=== PATIENT | female | born 1960 | race African-American/Black ===

== ENCOUNTER 2016-12-21 11:54 | Inpatient (IN) | payer OTHER ==
[~2016-12-21] VITALS: Ht 162.6 cm; Wt 89.0 kg
[~2016-12-21 11:54] MED LIST: AMLO-511 PO; ATOR80TA PO; FURO40 PO; NITR0.4I3 SL; POTA8CAP10 PO; VALS160T2 PO; VICOT PO; WARF5 PO
[2016-12-21] MEDS ORDERED: NALO25TA PO (12:25)
[2016-12-21] MEDS ORDERED: GABA-531 PO (12:25)
[2016-12-21] MEDS ORDERED: METO50 PO (12:25)
[2016-12-21] MEDS ORDERED: RANI150T7 PO (12:25)
[2016-12-21] MEDS ORDERED: DICY20 PO (12:25)
[2016-12-21] MEDS ORDERED: FEBU40T PO (12:25)
[2016-12-21] MEDS ORDERED: ONDANSETRON HCL 4 MG/2 ML VIAL IVP ONE (12:30)
[2016-12-21] MEDS ORDERED: MORPHINE SULFATE 2 MG/ML SYRINGE IVP ONE ×2 (12:30→15:45)
[2016-12-21 12:42] LABS: BASOPHILS % (AUTO) 0.6 % (0.0-2.0); EOSINOPHILS % (AUTO) 2.9 % (1.0-6.0); HEMATOCRIT 40.5 % (36-46); HEMOGLOBIN 12.8 g/dL (12.0-16.0); LYMPHOCYTES # (AUTO) 2.2 K/uL (1.0-4.8); LYMPHOCYTES % (AUTO) 27.6 % (22.0-44.0); MEAN CORPUSCULAR HEMOGLOBIN 25.2 pg (26.0-34.0); MEAN CORPUSCULAR HGB CONC 31.6 G/dL (31.0-37.0); MEAN CORPUSCULAR VOLUME 80 fL (80-100); MONOCYTES # (AUTO) 0.4 K/uL (0.1-1.0); MONOCYTES % (AUTO) 4.5 % (2.0-9.0); NEUTROPHILS % (AUTO) 64.4 % (40.0-70.0); PLATELET COUNT (AUTO) 356 K/uL (150-450); RED BLOOD CELL COUNT(AUTO) 5.09 MIL/uL (4.00-5.20); RED CELL DISTRIBUTION WIDTH 15.6 % (11.5-14.5); WHITE BLOOD COUNT (AUTO) 7.8 K/uL (4.5-11.0)
[2016-12-21 12:54] LABS: PROTHROMBIN TIME 20.9 SEC (9.4-11.6)
[2016-12-21] MEDS ORDERED: HYDR-305 PO (12:56)
[2016-12-21] MEDS ORDERED: NITR.4 SL (12:56)
[2016-12-21] MEDS ORDERED: ATOR40TA28 PO (12:56)
[2016-12-21] MEDS ORDERED: AMLO-512 PO (12:56)
[2016-12-21] MEDS ORDERED: VALS80TA2 PO (12:56)
[2016-12-21 12:58] LABS: B-TYPE NATRIURETIC PEPTIDE 29 pg/mL (0-100)
[2016-12-21 13:02] LABS: ANION GAP 11 mmol/L (8-16); CALCIUM, TOTAL 9.2 mg/dL (8.8-10.5); CARBON DIOXIDE 23 mmol/L (22-29); CHLORIDE 110 mmol/L (98-107); CREATININE 0.81 mg/dL (0.60-1.30); GLOMERULAR FILTR. RATE CALC > 60 mL/min (>60); POTASSIUM 3.8 mmol/L (3.5-5.1); SODIUM SERUM 144 mmol/L (136-145); UREA NITROGEN, BLOOD 16 mg/dL (7-18)
[2016-12-21 13:25] LABS: ALANINE AMINOTRANSFERASE 39 U/L (12-78); ASPARTATE AMINOTRANSFERASE 23 U/L (15-37); BILIRUBIN,TOTAL 0.3 mg/dL (0.1-1.0); CREATINE KINASE MB 1.4 ng/mL (0-5); CREATINE KINASE, TOTAL 111 U/L (26-192); TOTAL PROTEIN, SERUM 7.6 g/dL (6.4-8.2)
[2016-12-21 14:38] LABS: APPEARANCE,URINE CLOUDY (CLEAR); GLUCOSE, URINE (UA) NEGATIVE (NEGATIVE); KETONES,URINE NEGATIVE (NEGATIVE); LEUKOCYTE ESTERASE ,URINE NEGATIVE (NEGATIVE); OCCULT BLOOD,URINE NEGATIVE (NEGATIVE); PROTEIN,URINE NEGATIVE (NEGATIVE)
[2016-12-21 14:44] LABS: ADD UA MICROSCOPIC YES
[2016-12-21 14:46] LABS: RBC,URINE None Seen /HPF (0-2); SQUAMOUS EPITHELIAL CELL,UR Many /LPF (None Seen); WBC,URINE 0-2 /HPF (0-5)
[2016-12-21] MEDS ORDERED: ACETAMINOPHEN 325 MG TABLET PO PRN (17:15)
[2016-12-21] MEDS ORDERED: ZOLPIDEM TARTRATE 5 MG TABLET PO PRN (17:15)
[2016-12-21 20:15] VITALS: BP 107/58
[2016-12-21] MEDS ORDERED: ATORVASTATIN CALCIUM 40 MG TABLET PO SCH (21:00)
[2016-12-21] MEDS ORDERED: WARFARIN SODIUM 5 MG TABLET PO SCH (21:00)
[2016-12-21] MEDS: OxyCODONE HCL/ACETAMINOPHEN 5-325 MG TABLET PO PRN (21:02)
[2016-12-21] MEDS: DOCUSATE SODIUM 100 MG CAPSULE PO SCH (21:02)
[2016-12-22 05:36] VITALS: BP 113/60
[2016-12-22 07:14] VITALS: BP 131/56
[2016-12-22] MEDS: OxyCODONE HCL/ACETAMINOPHEN 5-325 MG TABLET PO PRN ×3 (07:34→16:09)
[2016-12-22] MEDS: DOCUSATE SODIUM 100 MG CAPSULE PO SCH (07:35)
[2016-12-22 08:06] LABS: BASOPHILS % (AUTO) 0.9 % (0.0-2.0); EOSINOPHILS % (AUTO) 3.7 % (1.0-6.0); HEMATOCRIT 37.4 % (36-46); HEMOGLOBIN 11.8 g/dL (12.0-16.0); LYMPHOCYTES # (AUTO) 2.1 K/uL (1.0-4.8); LYMPHOCYTES % (AUTO) 30.4 % (22.0-44.0); MEAN CORPUSCULAR HEMOGLOBIN 25.2 pg (26.0-34.0); MEAN CORPUSCULAR HGB CONC 31.5 G/dL (31.0-37.0); MEAN CORPUSCULAR VOLUME 80 fL (80-100); MONOCYTES # (AUTO) 0.5 K/uL (0.1-1.0); MONOCYTES % (AUTO) 7.8 % (2.0-9.0); NEUTROPHILS % (AUTO) 57.2 % (40.0-70.0); PLATELET COUNT (AUTO) 301 K/uL (150-450); RED BLOOD CELL COUNT(AUTO) 4.69 MIL/uL (4.00-5.20); RED CELL DISTRIBUTION WIDTH 15.8 % (11.5-14.5)
[2016-12-22 08:20] LABS: ALANINE AMINOTRANSFERASE 33 U/L (12-78); ALBUMIN 3.7 g/dL (3.4-5.0); ANION GAP 9 mmol/L (8-16); ASPARTATE AMINOTRANSFERASE 21 U/L (15-37); BILIRUBIN,TOTAL 0.3 mg/dL (0.1-1.0); CALCIUM, TOTAL 8.9 mg/dL (8.8-10.5); CARBON DIOXIDE 25 mmol/L (22-29); CHLORIDE 108 mmol/L (98-107); CREATININE 0.81 mg/dL (0.60-1.30); GLOMERULAR FILTR. RATE CALC > 60 mL/min (>60); SODIUM SERUM 142 mmol/L (136-145); TOTAL PROTEIN, SERUM 6.9 g/dL (6.4-8.2); UREA NITROGEN, BLOOD 15 mg/dL (7-18)
[2016-12-22] MEDS ORDERED: PANTOPRAZOLE SODIUM 40 MG DR TABLET PO SCH (09:00)
[2016-12-22 11:45] VITALS: BP 121/70
[2016-12-22 15:30] VITALS: BP 121/71
== END 2016-12-22 16:25 | disposition home or self-care (01) | DRG 198 ==
LOC: EDUNIT# 11:54 → EMS 11:55 → 5N 18:42
PROVIDERS: ADMIT Internal Medicine; ATTEND Internal Medicine
DX: R07.89 Other chest pain (principal); I25.10 Atherosclerotic heart disease of native coronary artery without angina pectoris; I11.0 Hypertensive heart disease with heart failure; I50.9 Heart failure, unspecified; E78.00 Pure hypercholesterolemia, unspecified; F19.90 Other psychoactive substance use, unspecified, uncomplicated; R00.1 Bradycardia, unspecified; E66.9 Obesity, unspecified; F17.210 Nicotine dependence, cigarettes, uncomplicated; Z95.1 Presence of aortocoronary bypass graft; Z87.440 Personal history of urinary (tract) infections; Z98.890 Other specified postprocedural states; Z88.0 Allergy status to penicillin; Z79.01 Long term (current) use of anticoagulants; Z95.2 Presence of prosthetic heart valve; Z79.1 Long term (current) use of non-steroidal anti-inflammatories (NSAID); Z79.891 Long term (current) use of opiate analgesic; Z79.899 Other long term (current) drug therapy; Z72.89 Other problems related to lifestyle; Z68.33 Body mass index [BMI] 33.0-33.9, adult
CPT/HCPCS: 83735; 87340; 93005; 93306; 96374; 96375; 96376; 99285; J2270; J2405

== ENCOUNTER 2017-01-18 11:38 | Emergency (ER) | payer OTHER ==
[~2017-01-18] VITALS: Ht 167.6 cm; Wt 88.0 kg
[~2017-01-18 11:38] MED LIST changes: -AMLO-511 PO; +ATOR40TA28 PO; -ATOR80TA PO; -FURO40 PO; -NITR0.4I3 SL; -POTA8CAP10 PO; +RANI150T7 PO; -VALS160T2 PO; -VICOT PO
[2017-01-18] MEDS ORDERED: GABA-318 PO (12:04)
[2017-01-18] MEDS ORDERED: TRAM50TA4 PO (12:04)
[2017-01-18] MEDS ORDERED: FURO40TA5 PO (12:04)
[2017-01-18] MEDS ORDERED: CARI350 PO (12:04)
[2017-01-18] MEDS ORDERED: ADV250 PUFF (12:04)
[2017-01-18] MEDS ORDERED: TOPI100 PO (12:04)
[2017-01-18] MEDS ORDERED: ALBU8HFA PUFF (12:04)
[2017-01-18] MEDS ORDERED: AMLO10TA55 PO (12:04)
[2017-01-18] MEDS ORDERED: DICY20TA11 PO (12:04)
[2017-01-18] MEDS ORDERED: POTA8TAB7 PO (12:04)
[2017-01-18] MEDS ORDERED: MONT10TA24 PO (12:04)
[2017-01-18] MEDS ORDERED: FEBU40T PO (12:04)
[2017-01-18] MEDS ORDERED: AMLO-512 PO (12:16)
[2017-01-18] MEDS ORDERED: HYDR-3971 PO (12:18)
[2017-01-18] MEDS ORDERED: METO25 PO (12:18)
[2017-01-18 12:20] LABS: BASOPHILS # (AUTO) 0.05 K/uL (0.00-0.20); BASOPHILS % (AUTO) 0.7 % (0.0-2.0); EOSINOPHILS # (AUTO) 0.21 K/uL (0.00-0.70); EOSINOPHILS % (AUTO) 2.84 % (1.0-6.0); HEMOGLOBIN 12.5 g/dL (12.0-16.0); MEAN CORPUSCULAR HGB CONC 31.2 G/dL (31.0-37.0); MEAN CORPUSCULAR VOLUME 80 fL (80-100); MONOCYTES # (AUTO) 0.3 K/uL (0.1-1.0); MONOCYTES % (AUTO) 4.6 % (2.0-9.0); NEUTROPHILS # (AUTO) 4.7 K/uL (1.8-7.7); NEUTROPHILS % (AUTO) 64.9 % (40.0-70.0); PLATELET COUNT (AUTO) 353 K/uL (150-450); RED BLOOD CELL COUNT(AUTO) 4.98 MIL/uL (4.00-5.20); WHITE BLOOD COUNT (AUTO) 7.3 K/uL (4.5-11.0)
[2017-01-18 12:32] LABS: ANION GAP 10 mmol/L (8-16); CALCIUM, TOTAL 9.6 mg/dL (8.8-10.5); CARBON DIOXIDE 27 mmol/L (22-29); CHLORIDE 106 mmol/L (98-107); CREATININE 0.92 mg/dL (0.60-1.30); GLOMERULAR FILTR. RATE CALC > 60 mL/min (>60); POTASSIUM 3.8 mmol/L (3.5-5.1); SODIUM SERUM 143 mmol/L (136-145); UREA NITROGEN, BLOOD 15 mg/dL (7-18)
[2017-01-18 12:33] LABS: ADD UA MICROSCOPIC NO; APPEARANCE,URINE CLOUDY (CLEAR); GLUCOSE, URINE (UA) NEGATIVE (NEGATIVE); KETONES,URINE NEGATIVE (NEGATIVE); LEUKOCYTE ESTERASE ,URINE NEGATIVE (NEGATIVE); OCCULT BLOOD,URINE NEGATIVE (NEGATIVE); PH,URINE 7.5 (5.0-8.0); PROTEIN,URINE NEGATIVE (NEGATIVE)
[2017-01-18 12:38] LABS: ALANINE AMINOTRANSFERASE 38 U/L (12-78); ALBUMIN 4.3 g/dL (3.4-5.0); ASPARTATE AMINOTRANSFERASE 24 U/L (15-37); BILIRUBIN,TOTAL 0.6 mg/dL (0.1-1.0); TOTAL PROTEIN, SERUM 7.8 g/dL (6.4-8.2)
[2017-01-18] MEDS ORDERED: OxyCODONE HCL/ACETAMINOPHEN 5-325 MG TABLET PO ONE (14:30)
[2017-01-18] MEDS ORDERED: HYDROmorphone 2 MG/ML SYRINGE IVP ONE ×2 (16:00→20:00)
[2017-01-18] MEDS ORDERED: BARIUM SULFATE 0.1% SUSPENSION 450 ML BOTTLE PO ONE (16:00)
[2017-01-18 16:10] LABS: INR 1.3 (0.9-1.1); PROTHROMBIN TIME 13.7 SEC (9.4-11.6)
[2017-01-18] MEDS ORDERED: SODIUM CHLORIDE 0.9% 1,000 ML IV ONE (17:00)
[2017-01-18] MEDS ORDERED: IOVERSOL 350 MG/ML 150 ML VIAL ONE (17:06)
[2017-01-18] MEDS ORDERED: SODIUM CHLORIDE 0.9% 100 ML ONE (17:06)
[2017-01-18 19:45] VITALS: BP 122/60
[2017-01-18] MEDS ORDERED: ONDANSETRON HCL 4 MG/2 ML VIAL IVP ONE (20:00)
== END 2017-01-18 20:31 | disposition home or self-care (01) ==
LOC: EMS 11:39
DX: D25.9 Leiomyoma of uterus, unspecified (principal); I11.0 Hypertensive heart disease with heart failure; I50.9 Heart failure, unspecified; E78.00 Pure hypercholesterolemia, unspecified; F17.210 Nicotine dependence, cigarettes, uncomplicated; Z88.0 Allergy status to penicillin; Z88.8 Allergy status to other drugs, medicaments and biological substances; Z95.1 Presence of aortocoronary bypass graft
CPT/HCPCS: 36415; 74177; 76700; 76856; 80053; 81003; 83690; 84484; 85025; 85610; 93005; 96374; 96375; 99285; J1170; J2405; J7030; J7050; Q9967; Z7610

== ENCOUNTER 2018-02-02 07:22 | Inpatient (IN) | payer OTHER ==
[~2018-02-02] VITALS: Ht 162.6 cm; Wt 89.7 kg
[~2018-02-02 07:22] MED LIST changes: +ALBU8HFA PUFF; +AMLO-512 PO; +CARI350 PO; +DICY20TA11 PO; +FEBU40T PO; +FURO40TA5 PO; +GABA-318 PO; +HYDR-4069 PO; +METO25 PO; +MONT10TA24 PO; +POTA8TAB7 PO; +TOPI100T37 PO; +TRAM50TA4 PO
[2018-02-02 08:13] LABS: BASOPHILS % (AUTO) 0.3 % (0.0-2.0); EOSINOPHILS % (AUTO) 3.1 % (1.0-6.0); HEMATOCRIT 35.5 % (36-46); HEMOGLOBIN 11.7 g/dL (12.0-16.0); LYMPHOCYTES % (AUTO) 27.5 % (22.0-44.0); MEAN CORPUSCULAR HEMOGLOBIN 25.6 pg (26.0-34.0); MEAN CORPUSCULAR HGB CONC 32.9 G/dL (31.0-37.0); MEAN CORPUSCULAR VOLUME 78 fL (80-100); MONOCYTES # (AUTO) 0.4 K/uL (0.1-1.0); MONOCYTES % (AUTO) 5.9 % (2.0-9.0); NEUTROPHILS # (AUTO) 4.5 K/uL (1.8-7.7); NEUTROPHILS % (AUTO) 63.2 % (40.0-70.0); PLATELET COUNT (AUTO) 316 K/uL (150-450); RED BLOOD CELL COUNT(AUTO) 4.57 MIL/uL (4.00-5.20); RED CELL DISTRIBUTION WIDTH 14.9 % (11.5-14.5)
[2018-02-02 08:33] LABS: ANION GAP 10 mmol/L (8-16); CALCIUM, TOTAL 8.7 mg/dL (8.8-10.5); CARBON DIOXIDE 23 mmol/L (22-29); CHLORIDE 111 mmol/L (98-107); CREATININE 0.95 mg/dL (0.60-1.30); GLOMERULAR FILTR. RATE CALC > 60 mL/min (>60); GLUCOSE,RANDOM 110 mg/dL (70-110); POTASSIUM 3.5 mmol/L (3.5-5.1); SODIUM SERUM 144 mmol/L (136-145); UREA NITROGEN, BLOOD 17 mg/dL (7-18)
[2018-02-02 08:37] LABS: B-TYPE NATRIURETIC PEPTIDE 150 pg/mL (0-100)
[2018-02-02 08:58] LABS: ALANINE AMINOTRANSFERASE 27 U/L (12-78); ALBUMIN 3.7 g/dL (3.4-5.0); ALKALINE PHOSPHATASE 97 U/L (46-116); ASPARTATE AMINOTRANSFERASE 19 U/L (15-37); BILIRUBIN,TOTAL 0.3 mg/dL (0.1-1.0); CREATINE KINASE MB 0.8 ng/mL (0-5); CREATINE KINASE, TOTAL 86 U/L (26-192)
[2018-02-02] MEDS ORDERED: MORPHINE SULFATE 2 MG/ML SYRINGE IVP ONE (09:00)
[2018-02-02 09:14] LABS: INR 1.8 (0.9-1.1); PROTHROMBIN TIME 18.6 SEC (9.4-11.6)
[2018-02-02] MEDS ORDERED: ACETAMINOPHEN 325 MG TABLET PO PRN ×2 (11:00→20:00)
[2018-02-02] MEDS ORDERED: ONDANSETRON HCL 4 MG/2 ML VIAL IVP PRN ×2 (11:00→20:00)
[2018-02-02] MEDS ORDERED: WARFARIN SODIUM 2 MG TABLET PO ONE (15:00)
[2018-02-02 15:55] VITALS: BP 126/54
[2018-02-02 19:21] VITALS: BP 142/70
[2018-02-02] MEDS ORDERED: BISACODYL 10 MG RECTAL RECTAL SUPPOSITORY PR PRN (20:00)
[2018-02-02] MEDS ORDERED: HYDROCODONE/ACETAMINOPHEN 10-325 MG TABLET PO PRN (20:00)
[2018-02-02] MEDS ORDERED: FUROSEMIDE 40 MG TABLET PO SCH (20:00)
[2018-02-02] MEDS ORDERED: NITROGLYCERIN 2% (1 GM=INCH) PACKET TP PRN (20:30)
[2018-02-02] MEDS: MORPHINE SULFATE 4 MG/ML SYRINGE IVP PRN (20:53)
[2018-02-02] MEDS: PANTOPRAZOLE SODIUM 40 MG DR TABLET PO SCH (20:53)
[2018-02-02] MEDS: ATORVASTATIN CALCIUM 40 MG TABLET PO SCH (20:53)
[2018-02-02] MEDS: GABAPENTIN 300 MG CAPSULE PO SCH (20:53)
[2018-02-02] MEDS ORDERED: FUROSEMIDE 40 MG/4 ML VIAL IVP SCH (21:00)
[2018-02-02] MEDS: FEBUXOSTAT 40 MG TABLET PO SCH (21:00)
[2018-02-02] MEDS: RANITIDINE HCL 150 MG TABLET PO SCH (21:00)
[2018-02-02] MEDS: FUROSEMIDE 40 MG/4 ML VIAL IVP SCH (21:00)
[2018-02-02] MEDS: CARISOPRODOL 350 MG TABLET PO SCH (21:00)
[2018-02-02] MEDS ORDERED: METOPROLOL TARTRATE 25 MG TABLET PO SCH (21:00)
[2018-02-02 21:18] LABS: EOSINOPHILS % (AUTO) 3.4 % (1.0-6.0); HEMATOCRIT 34.9 % (36-46); HEMOGLOBIN 11.4 g/dL (12.0-16.0); LYMPHOCYTES # (AUTO) 2.6 K/uL (1.0-4.8); LYMPHOCYTES % (AUTO) 31.6 % (22.0-44.0); MEAN CORPUSCULAR HEMOGLOBIN 25.4 pg (26.0-34.0); MEAN CORPUSCULAR HGB CONC 32.6 G/dL (31.0-37.0); MEAN CORPUSCULAR VOLUME 78 fL (80-100); MONOCYTES # (AUTO) 0.5 K/uL (0.1-1.0); MONOCYTES % (AUTO) 6.5 % (2.0-9.0); NEUTROPHILS # (AUTO) 4.8 K/uL (1.8-7.7); NEUTROPHILS % (AUTO) 57.5 % (40.0-70.0); PLATELET COUNT (AUTO) 304 K/uL (150-450); RED BLOOD CELL COUNT(AUTO) 4.47 MIL/uL (4.00-5.20); RED CELL DISTRIBUTION WIDTH 15.2 % (11.5-14.5)
[2018-02-02 21:27] LABS: INR 1.6 (0.9-1.1); PROTHROMBIN TIME 16.7 SEC (9.4-11.6)
[2018-02-02 21:32] LABS: ANION GAP 7 mmol/L (8-16); CALCIUM, TOTAL 8.5 mg/dL (8.8-10.5); CARBON DIOXIDE 26 mmol/L (22-29); CHLORIDE 109 mmol/L (98-107); CREATININE 0.98 mg/dL (0.60-1.30); GLOMERULAR FILTR. RATE CALC > 60 mL/min (>60); GLUCOSE,RANDOM 114 mg/dL (70-110); POTASSIUM 3.4 mmol/L (3.5-5.1); SODIUM SERUM 142 mmol/L (136-145); UREA NITROGEN, BLOOD 19 mg/dL (7-18)
[2018-02-02 21:38] LABS: PLATELET MORPHOLOGY COMMENT GIANT PLTS PRESENT
[2018-02-02 23:49] VITALS: BP 133/62
[2018-02-02] MEDS: TOPIRAMATE 100 MG TABLET PO SCH (23:52)
[2018-02-02] MEDS: DICYCLOMINE HCL 20 MG TABLET PO SCH (23:52)
[2018-02-02] MEDS: AmLODIPine BESYLATE 10 MG TABLET PO SCH (23:53)
[2018-02-03] VITALS (8 sets, daily range): BP systolic 113–143; BP diastolic 55–76
[2018-02-03] MEDS: IPRATROPIUM BROMIDE 0.5 MG/2.5 ML NEB SOLUTION NEB SCH ×4 (02:00→20:00)
[2018-02-03] MEDS: POTASSIUM CHLORIDE 8 MEQ ER TABLET PO SCH (04:30)
[2018-02-03] MEDS: MONTELUKAST SODIUM 10 MG TABLET PO SCH (05:53)
[2018-02-03 06:51] LABS: BASOPHILS % (AUTO) 0.9 % (0.0-2.0); EOSINOPHILS % (AUTO) 3.2 % (1.0-6.0); HEMATOCRIT 36.8 % (36-46); HEMOGLOBIN 12.1 g/dL (12.0-16.0); LYMPHOCYTES % (AUTO) 26.5 % (22.0-44.0); MEAN CORPUSCULAR HEMOGLOBIN 25.8 pg (26.0-34.0); MEAN CORPUSCULAR HGB CONC 32.7 G/dL (31.0-37.0); MEAN CORPUSCULAR VOLUME 79 fL (80-100); MONOCYTES # (AUTO) 0.5 K/uL (0.1-1.0); MONOCYTES % (AUTO) 6.4 % (2.0-9.0); NEUTROPHILS # (AUTO) 4.7 K/uL (1.8-7.7); PLATELET COUNT (AUTO) 307 K/uL (150-450); RED BLOOD CELL COUNT(AUTO) 4.67 MIL/uL (4.00-5.20); RED CELL DISTRIBUTION WIDTH 14.9 % (11.5-14.5)
[2018-02-03 07:12] LABS: INR 1.8 (0.9-1.1); PROTHROMBIN TIME 18.3 SEC (9.4-11.6)
[2018-02-03 07:18] LABS: ALANINE AMINOTRANSFERASE 28 U/L (12-78); ALBUMIN 3.8 g/dL (3.4-5.0); ALKALINE PHOSPHATASE 94 U/L (46-116); ANION GAP 7 mmol/L (8-16); ASPARTATE AMINOTRANSFERASE 19 U/L (15-37); BILIRUBIN,TOTAL 0.3 mg/dL (0.1-1.0); CALCIUM, TOTAL 9.1 mg/dL (8.8-10.5); CARBON DIOXIDE 27 mmol/L (22-29); CHLORIDE 108 mmol/L (98-107); GLOMERULAR FILTR. RATE CALC > 60 mL/min (>60); GLUCOSE,RANDOM 111 mg/dL (70-110); SODIUM SERUM 142 mmol/L (136-145); TOTAL PROTEIN, SERUM 7.1 g/dL (6.4-8.2); UREA NITROGEN, BLOOD 15 mg/dL (7-18)
[2018-02-03] MEDS: FEBUXOSTAT 40 MG TABLET PO SCH (07:45)
[2018-02-03] MEDS: CARISOPRODOL 350 MG TABLET PO SCH ×2 (07:45→20:49)
[2018-02-03] MEDS: MORPHINE SULFATE 4 MG/ML SYRINGE IVP PRN (08:43)
[2018-02-03] MEDS: PANTOPRAZOLE SODIUM 40 MG DR TABLET PO SCH (08:43)
[2018-02-03] MEDS: DICYCLOMINE HCL 20 MG TABLET PO SCH (08:44)
[2018-02-03] MEDS: FUROSEMIDE 40 MG/4 ML VIAL IVP SCH ×2 (08:44→20:34)
[2018-02-03] MEDS: TOPIRAMATE 100 MG TABLET PO SCH (08:44)
[2018-02-03] MEDS: GABAPENTIN 300 MG CAPSULE PO SCH ×3 (08:44→20:35)
[2018-02-03] MEDS: AmLODIPine BESYLATE 10 MG TABLET PO SCH (10:38)
[2018-02-03] MEDS: NICOTINE 21 MG/24 HOUR PATCH TD SCH (16:42)
[2018-02-03] MEDS: IPRATROPIUM BROMIDE HFA 17 MCG/PUFF 12.9 GM INHALER IH SCH ×2 (16:42→20:58)
[2018-02-03] MEDS ORDERED: METOPROLOL TARTRATE 25 MG TABLET PO SCH (18:00)
[2018-02-03] MEDS: ATORVASTATIN CALCIUM 40 MG TABLET PO SCH (20:34)
[2018-02-03] MEDS: RANITIDINE HCL 150 MG TABLET PO SCH (20:49)
[2018-02-03] MEDS: HYDROCODONE/ACETAMINOPHEN 5-325 MG TABLET PO PRN (21:00)
[2018-02-03] MEDS ORDERED: WARFARIN SODIUM 5 MG TABLET PO SCH ×2 (21:00)
[2018-02-04] MEDS: IPRATROPIUM BROMIDE 0.5 MG/2.5 ML NEB SOLUTION NEB SCH ×2 (02:00→09:03)
[2018-02-04] MEDS: MONTELUKAST SODIUM 10 MG TABLET PO SCH (05:05)
[2018-02-04] MEDS: POTASSIUM CHLORIDE 8 MEQ ER TABLET PO SCH (05:05)
[2018-02-04 05:49] VITALS: BP 131/77
[2018-02-04 07:41] VITALS: BP 122/73
[2018-02-04 08:01] LABS: BASOPHILS % (AUTO) 0.9 % (0.0-2.0); HEMATOCRIT 44.1 % (36-46); HEMOGLOBIN 14.3 g/dL (12.0-16.0); LYMPHOCYTES # (AUTO) 1.5 K/uL (1.0-4.8); LYMPHOCYTES % (AUTO) 23.1 % (22.0-44.0); MEAN CORPUSCULAR HEMOGLOBIN 25.6 pg (26.0-34.0); MEAN CORPUSCULAR HGB CONC 32.5 G/dL (31.0-37.0); MEAN CORPUSCULAR VOLUME 79 fL (80-100); MONOCYTES # (AUTO) 0.3 K/uL (0.1-1.0); MONOCYTES % (AUTO) 5.1 % (2.0-9.0); NEUTROPHILS # (AUTO) 4.5 K/uL (1.8-7.7); NEUTROPHILS % (AUTO) 67.9 % (40.0-70.0); PLATELET COUNT (AUTO) 340 K/uL (150-450); RED BLOOD CELL COUNT(AUTO) 5.61 MIL/uL (4.00-5.20); RED CELL DISTRIBUTION WIDTH 15.3 % (11.5-14.5)
[2018-02-04] MEDS: FUROSEMIDE 40 MG/4 ML VIAL IVP SCH (08:06)
[2018-02-04] MEDS: GABAPENTIN 300 MG CAPSULE PO SCH (08:07)
[2018-02-04] MEDS: TOPIRAMATE 100 MG TABLET PO SCH (08:07)
[2018-02-04] MEDS: NICOTINE 21 MG/24 HOUR PATCH TD SCH (08:07)
[2018-02-04] MEDS: DICYCLOMINE HCL 20 MG TABLET PO SCH (08:07)
[2018-02-04] MEDS: PANTOPRAZOLE SODIUM 40 MG DR TABLET PO SCH (08:07)
[2018-02-04] MEDS: AmLODIPine BESYLATE 10 MG TABLET PO SCH (08:07)
[2018-02-04] MEDS: FEBUXOSTAT 40 MG TABLET PO SCH (08:08)
[2018-02-04] MEDS: CARISOPRODOL 350 MG TABLET PO SCH (08:08)
[2018-02-04 08:12] LABS: ALANINE AMINOTRANSFERASE 34 U/L (12-78); ALBUMIN 4.7 g/dL (3.4-5.0); ALKALINE PHOSPHATASE 119 U/L (46-116); ANION GAP 11 mmol/L (8-16); ASPARTATE AMINOTRANSFERASE 22 U/L (15-37); BILIRUBIN,TOTAL 0.4 mg/dL (0.1-1.0); CALCIUM, TOTAL 9.7 mg/dL (8.8-10.5); CARBON DIOXIDE 28 mmol/L (22-29); CHLORIDE 104 mmol/L (98-107); CHOL/HDL RATIO 4.5 (3.9-5.7); CHOLESTEROL 200 mg/dL (131-200); GLOMERULAR FILTR. RATE CALC > 60 mL/min (>60); GLUCOSE,RANDOM 97 mg/dL (70-110); HDL CHOLESTEROL 44 mg/dL (40-60); LDL CHOL (CALC.) 102 mg/dL (0-130); POTASSIUM 3.4 mmol/L (3.5-5.1); SODIUM SERUM 143 mmol/L (136-145); TOTAL PROTEIN, SERUM 8.7 g/dL (6.4-8.2); TRIGLYCERIDES 270 mg/dL (15-150); UREA NITROGEN, BLOOD 18 mg/dL (7-18)
[2018-02-04 08:17] LABS: HEMOGLOBIN A1C 5.8 % (4.5-6.2)
[2018-02-04] MEDS: HYDROCODONE/ACETAMINOPHEN 5-325 MG TABLET PO PRN (08:30)
[2018-02-04] MEDS ORDERED: MAGNESIUM CITRATE 300 ML ORAL SOLUTION PO ONE (09:00)
[2018-02-04] MEDS: IPRATROPIUM BROMIDE HFA 17 MCG/PUFF 12.9 GM INHALER IH SCH (09:00)
[2018-02-04] MEDS ORDERED: WARF3TAB29 PO (11:10)
[2018-02-04] MEDS ORDERED: CARI350 PO (11:12)
[2018-02-04] MEDS ORDERED: FURO-151 PO (11:13)
[2018-02-04] MEDS ORDERED: IPRAHFA IH (11:14)
[2018-02-04] MEDS ORDERED: NICO1PAT40 TD (11:15)
[2018-02-04 11:23] VITALS: BP 136/79
== END 2018-02-04 12:30 | disposition home or self-care (01) | DRG 198 ==
LOC: EMS 07:24 → 5N 15:10
PROVIDERS: ADMIT Internal Medicine; ATTEND Internal Medicine
DX: I25.110 Atherosclerotic heart disease of native coronary artery with unstable angina pectoris (principal); I11.0 Hypertensive heart disease with heart failure; I50.32 Chronic diastolic (congestive) heart failure; E78.5 Hyperlipidemia, unspecified; G89.4 Chronic pain syndrome; F17.210 Nicotine dependence, cigarettes, uncomplicated; M94.0 Chondrocostal junction syndrome [Tietze]; E78.00 Pure hypercholesterolemia, unspecified; R00.1 Bradycardia, unspecified; Z95.2 Presence of prosthetic heart valve; Z95.1 Presence of aortocoronary bypass graft; Z79.01 Long term (current) use of anticoagulants; Z79.899 Other long term (current) drug therapy; Z88.0 Allergy status to penicillin; Z88.8 Allergy status to other drugs, medicaments and biological substances; Z82.49 Family history of ischemic heart disease and other diseases of the circulatory system
CPT/HCPCS: 83036; 83735; 93005; 93306; 94640; 96374; 99285; J1940; J2270; J3535

== ENCOUNTER 2022-10-06 10:40 | Inpatient (IN) | payer MEDICAID ==
[~2022-10-06] VITALS: Ht 162.6 cm; Wt 95.3 kg
[~2022-10-06 10:40] MED LIST changes: +AMLO-258 PO; -AMLO-512 PO; +CARI-493 PO; -CARI350 PO; -DICY20TA11 PO; +DICY20TA3 PO; -FEBU40T PO; +FURO-151 PO; -FURO40TA5 PO; -GABA-318 PO; +GABA600T10 PO; +IPRAHFA IH; +LEVO-72 PO; +MONT-40 PO; -MONT10TA24 PO; +NAPR-1024 PO; +NICO1PAT40 TD; +PROM473S4 PO; -RANI150T7 PO; +WARF3TAB8 PO; -WARF5 PO
[2022-10-06] MEDS ORDERED: WARF5TAB40 PO (11:04)
[2022-10-06 12:33] LABS: CALCIUM, TOTAL 9.9 mg/dL (8.8-10.5); CREATININE 1.22 mg/dL (0.60-1.30); POTASSIUM 3.5 mmol/L (3.5-5.1)
[2022-10-06 12:42] LABS: BASOPHILS % (AUTO) 1.4 % (0.0-2.0); EOSINOPHILS % (AUTO) 1.7 % (1.0-6.0); HEMATOCRIT 40.5 % (36-46); HEMOGLOBIN 12.7 g/dL (12.0-16.0); LYMPHOCYTES # (AUTO) 2.2 K/uL (1.0-4.8); LYMPHOCYTES % (AUTO) 21.9 % (22.0-44.0); MEAN CORPUSCULAR HEMOGLOBIN 24.4 pg (26.0-34.0); MEAN CORPUSCULAR HGB CONC 31.4 G/dL (31.0-37.0); MEAN CORPUSCULAR VOLUME 78 fL (80-100); MONOCYTES # (AUTO) 0.6 K/uL (0.1-1.0); MONOCYTES % (AUTO) 6.2 % (2.0-9.0); NEUTROPHILS # (AUTO) 6.8 K/uL (1.8-7.7); NEUTROPHILS % (AUTO) 68.8 % (40.0-70.0); PLATELET COUNT (AUTO) 448 K/uL (150-450); RED BLOOD CELL COUNT(AUTO) 5.21 MIL/uL (4.00-5.20); RED CELL DISTRIBUTION WIDTH 17.3 % (11.5-14.5)
[2022-10-06 12:44] LABS: PROTHROMBIN TIME 99.2 SEC (9.4-11.6)
[2022-10-06 12:47] LABS: ALBUMIN 4.2 g/dL (3.4-5.0); BILIRUBIN,TOTAL 0.4 mg/dL (0.1-1.0); TOTAL PROTEIN, SERUM 7.9 g/dL (6.4-8.2)
[2022-10-06 13:00] LABS: COVID AG,FIA SOURCE NASOPHARYNGEAL
[2022-10-06 13:02] LABS: INR 10.4 (0.9-1.1)
[2022-10-06] MEDS ORDERED: ACETAMINOPHEN 325 MG TABLET PO PRN (13:45)
[2022-10-06] MEDS ORDERED: ONDANSETRON HCL 4 MG/2 ML VIAL IVP PRN (13:45)
[2022-10-06] MEDS ORDERED: MAGNESIUM HYDROXIDE SUSPENSION 30 ML UDCUP PO PRN (13:45)
[2022-10-06] MEDS ORDERED: *CLINICAL-WARFARIN SODIUM DOSING CLINICAL ONE (13:45)
[2022-10-06] MEDS ORDERED: OxyCODONE HCL/ACETAMINOPHEN 5-325 MG TABLET PO PRN (13:45)
[2022-10-06] MEDS ORDERED: WARF6TAB49 PO (13:53)
[2022-10-06] MEDS ORDERED: CHOL100062 PO (13:53)
[2022-10-06] MEDS ORDERED: NALO25TA4 PO (13:53)
[2022-10-06] MEDS ORDERED: UBRO50TA PO (13:53)
[2022-10-06] MEDS ORDERED: WARF1TAB85 PO (13:53)
[2022-10-06] MEDS ORDERED: POTA8TAB71 PO (13:53)
[2022-10-06] MEDS ORDERED: TIZA-194 PO (13:53)
[2022-10-06] MEDS ORDERED: LOSA100T58 PO (13:53)
[2022-10-06] MEDS ORDERED: TRAM-559 PO (13:53)
[2022-10-06 13:54] LABS: INFLUENZA TYPE A NEGATIVE FOR TYPE A (NEGATIVE); INFLUENZA TYPE B NEGATIVE FOR TYPE B (NEGATIVE)
[2022-10-06] MEDS ORDERED: METO-408 PO (13:54)
[2022-10-06] MEDS ORDERED: ICOS0.5C PO (13:54)
[2022-10-06] MEDS ORDERED: WARFARIN SODIUM-INR 2.5-3.5-RX DOSING PER PROTOCOL PO PRN (14:30)
[2022-10-06] MEDS: DOCUSATE SODIUM 100 MG CAPSULE PO SCH (21:44)
[2022-10-06] MEDS: FAMOTIDINE 20 MG TABLET PO SCH (21:44)
[2022-10-07] MEDS: HYDROCODONE/ACETAMINOPHEN 5-325 MG TABLET PO PRN ×3 (03:06→18:48)
[2022-10-07 06:42] LABS: PROTHROMBIN TIME 107.3 SEC (9.4-11.6)
[2022-10-07 07:03] LABS: INR 11.3 (0.9-1.1)
[2022-10-07 07:14] VITALS: BP 120/70
[2022-10-07] MEDS: OxyCODONE HCL/ACETAMINOPHEN 5-325 MG TABLET PO PRN ×3 (07:35→17:19)
[2022-10-07] MEDS: DOCUSATE SODIUM 100 MG CAPSULE PO SCH ×2 (08:13→20:25)
[2022-10-07] MEDS: FAMOTIDINE 20 MG TABLET PO SCH ×2 (08:13→20:18)
[2022-10-07] MEDS: ALBUTEROL SULFATE 2.5 MG/0.5 ML NEB SOLUTION NEB PRN (08:57)
[2022-10-07 09:11] LABS: BASOPHILS % (AUTO) 1.4 % (0.0-2.0); EOSINOPHILS % (AUTO) 2.4 % (1.0-6.0); HEMATOCRIT 37.9 % (36-46); HEMOGLOBIN 12.2 g/dL (12.0-16.0); LYMPHOCYTES # (AUTO) 2.2 K/uL (1.0-4.8); LYMPHOCYTES % (AUTO) 23.3 % (22.0-44.0); MEAN CORPUSCULAR HGB CONC 32.1 G/dL (31.0-37.0); MEAN CORPUSCULAR VOLUME 78 fL (80-100); MONOCYTES # (AUTO) 0.8 K/uL (0.1-1.0); MONOCYTES % (AUTO) 8.3 % (2.0-9.0); NEUTROPHILS # (AUTO) 6.2 K/uL (1.8-7.7); NEUTROPHILS % (AUTO) 64.6 % (40.0-70.0); PLATELET COUNT (AUTO) 403 K/uL (150-450); RED BLOOD CELL COUNT(AUTO) 4.86 MIL/uL (4.00-5.20); RED CELL DISTRIBUTION WIDTH 17.3 % (11.5-14.5)
[2022-10-07 12:00] VITALS: BP 132/70
[2022-10-07 14:58] VITALS: BP_SYST 122; BP_SYST 143; BP_DIAS 74; BP_DIAS 94
[2022-10-07] MEDS: METOPROLOL SUCCINATE 25 MG ER TABLET PO SCH (18:48)
[2022-10-08 00:30] VITALS: BP 130/60
[2022-10-08 05:07] VITALS: BP 129/63
[2022-10-08 06:08] LABS: PROTHROMBIN TIME 74.8 SEC (9.4-11.6)
[2022-10-08 06:12] LABS: INR 7.7 (0.9-1.1)
[2022-10-08 07:11] VITALS: BP 124/60
[2022-10-08] MEDS: OxyCODONE HCL/ACETAMINOPHEN 5-325 MG TABLET PO PRN ×3 (08:17→18:04)
[2022-10-08] MEDS: DOCUSATE SODIUM 100 MG CAPSULE PO SCH ×2 (08:17→20:38)
[2022-10-08] MEDS: FAMOTIDINE 20 MG TABLET PO SCH ×2 (08:17→20:38)
[2022-10-08] MEDS: METOPROLOL SUCCINATE 25 MG ER TABLET PO SCH (08:17)
[2022-10-08] MEDS: HYDROCODONE/ACETAMINOPHEN 5-325 MG TABLET PO PRN ×2 (08:30→18:56)
[2022-10-08] MEDS ORDERED: IPRATROPIUM BROMIDE 0.5 MG/2.5 ML NEB SOLUTION NEB PRN (10:15)
[2022-10-08] MEDS ORDERED: ALBUTEROL SULFATE 2.5 MG/0.5 ML NEB SOLUTION NEB PRN (10:15)
[2022-10-08 11:34] VITALS: BP_SYST 104; BP_SYST 134; BP_DIAS 67; BP_DIAS 80
[2022-10-08 15:38] VITALS: BP 141/69
[2022-10-08] MEDS: ALBUTEROL SULFATE 2.5 MG/0.5 ML NEB SOLUTION NEB PRN (16:24)
[2022-10-08 20:43] VITALS: BP 136/70
[2022-10-09 04:48] VITALS: BP 116/57
[2022-10-09 07:16] VITALS: BP 159/67
[2022-10-09 07:17] LABS: INR 3.3 (0.9-1.1); PROTHROMBIN TIME 33.3 SEC (9.4-11.6)
[2022-10-09] MEDS: FAMOTIDINE 20 MG TABLET PO SCH (08:04)
[2022-10-09] MEDS: METOPROLOL SUCCINATE 25 MG ER TABLET PO SCH (08:04)
[2022-10-09] MEDS ORDERED: ESOM20CA31 PO (08:21)
[2022-10-09] MEDS: DOCUSATE SODIUM 100 MG CAPSULE PO SCH (09:00)
== END 2022-10-09 09:15 | disposition home or self-care (01) | DRG 661 ==
LOC: EMS 10:50 → ICUN 15:54 → 5S 10-07 01:00
PROVIDERS: ADMIT Internal Medicine; ATTEND Internal Medicine
DX: D68.9 Coagulation defect, unspecified (principal); I11.0 Hypertensive heart disease with heart failure; J44.0 Chronic obstructive pulmonary disease with (acute) lower respiratory infection; I50.32 Chronic diastolic (congestive) heart failure; J20.9 Acute bronchitis, unspecified; E66.9 Obesity, unspecified; G89.29 Other chronic pain; Z20.822 Contact with and (suspected) exposure to COVID-19; E78.00 Pure hypercholesterolemia, unspecified; I25.10 Atherosclerotic heart disease of native coronary artery without angina pectoris; F17.200 Nicotine dependence, unspecified, uncomplicated; I34.1 Nonrheumatic mitral (valve) prolapse; R07.89 Other chest pain; T45.515A Adverse effect of anticoagulants, initial encounter; Z82.49 Family history of ischemic heart disease and other diseases of the circulatory system; Z95.2 Presence of prosthetic heart valve; Z95.0 Presence of cardiac pacemaker; Z68.34 Body mass index [BMI] 34.0-34.9, adult; Z79.01 Long term (current) use of anticoagulants; Z95.1 Presence of aortocoronary bypass graft; Z79.899 Other long term (current) drug therapy; Y92.89 Other specified places as the place of occurrence of the external cause
CPT/HCPCS: 71045; 80053; 83880; 84484; 85025; 85610; 87804; 93005; 93306; 94640; 99285; G0378; 36415-L1; 36415-TC; J7613